=== PATIENT | female | born 1960 | race Caucasian/White ===

== ENCOUNTER 2018-08-05 09:16 | Day surgery (SDC) | payer OTHER ==
[~2018-08-05] VITALS: Ht 167.6 cm; Wt 95.7 kg
[~2018-08-05 09:16] MED LIST: ASPI81EC PO; ATOR80 PO; CYCL10 PO; Cymbalta60 MG PO; DICMIS50EC PO; DULO60; EPIN.3I IM; EZET10-40 PO; Flovent Diskus50 MCG; Glucophage1000 MG PO; HYDACE10B PO; HYDPAM25; METF500 PO; Norco 10-325 T1 EACH PO; PREG150 PO; Pravachol40 MG PO; VALD10
--- NOTE | 2018-08-05 10:14 | NUR ---
08/05/18 1014 Doug Hi PT DISCHARGE TEACHING REVIEWED WITH PT AND SPOUSE. RESTING COMFORTABLY IN BED WITH CALL LIGHT IN REACH.
--- NOTE | 2018-08-05 12:15 | NUR ---
08/05/18 1215 Randa Bill O2 REMOVED AT 1212, SLOW DEST TO 88%. MUSTACHE DSG REMOVED AND O2 MASK BACK ON
--- NOTE | 2018-08-05 12:31 | NUR ---
08/05/18 1230 Bertha Allen PT TRANSFERRED INTO RECLINER SBA W/O DIFFICULTY. NO NASAL DRAINAGE AT THIS TIME. PT DENIES PAIN AND NAUSEA UPON ARRIVAL TO SDU. PT TOLERATIN PO FLUIDS WELL AND DENIES SNACKS AT THIS TIME.
== END 2018-08-05 13:14 | disposition home or self-care (01) ==
LOC: ORSCSDS 09:16
PROVIDERS: Otolaryngology
PROC: 09BM0ZZ Excision of Nasal Septum, Open Approach (ICD-10-PCS; principal; 2018-08-05 10:15)
PROC: 09TL0ZZ Resection of Nasal Turbinate, Open Approach (ICD-10-PCS; principal; 2018-08-05 10:15)
DX: J34.2 Deviated nasal septum (principal); J34.3 Hypertrophy of nasal turbinates; G47.33 Obstructive sleep apnea (adult) (pediatric); E11.9 Type 2 diabetes mellitus without complications; M79.7 Fibromyalgia; F17.210 Nicotine dependence, cigarettes, uncomplicated; Z79.899 Other long term (current) drug therapy
CPT/HCPCS: 82947; J1100; J1885; J2405; J2710; J2765; J3010; J7120

== ENCOUNTER 2022-12-21 11:48 | Day surgery (SDC) | payer OTHER ==
[~2022-12-21] VITALS: Ht 167.6 cm; Wt 81.2 kg
[2022-12-21] MEDS ORDERED: FLONASE SENSIM5.9 M1 (12:39)
[2022-12-21] MEDS ORDERED: OZEMPIC0.25 MG/0. (12:40)
[2022-12-21 14:39] VITALS: BP 132/69
== END 2022-12-21 14:45 | disposition home or self-care (01) ==
LOC: ORSCSDS 11:48
PROVIDERS: Internal Medicine Gastroenterology
PROC: 0DBL8ZX Excision of Transverse Colon, Via Natural or Artificial Opening Endoscopic, Diagnostic (ICD-10-PCS; principal; 2022-12-21 13:00)
DX: Z12.11 Encounter for screening for malignant neoplasm of colon (principal); Z86.010 Personal history of colon polyps; Z80.0 Family history of malignant neoplasm of digestive organs; Z83.71 Family history of colonic polyps; D12.3 Benign neoplasm of transverse colon; K57.30 Diverticulosis of large intestine without perforation or abscess without bleeding; K64.8 Other hemorrhoids; K75.81 Nonalcoholic steatohepatitis (NASH); E11.9 Type 2 diabetes mellitus without complications; G47.33 Obstructive sleep apnea (adult) (pediatric); F17.210 Nicotine dependence, cigarettes, uncomplicated; Z79.899 Other long term (current) drug therapy
CPT/HCPCS: 82947; 88305; J0461; J2001; J2405; J2704; J7120; Q9968